=== PATIENT | female | born 1950 | race Caucasian/White ===

== ENCOUNTER → 2017-04-22 | Outpatient (CLI) | payer OTHER, BC | LOC: CAT 08:37 | DX: R91.1 Solitary pulmonary nodule (principal); Z85.3 Personal history of malignant neoplasm of breast; Z90.11 Acquired absence of right breast and nipple ==

== ENCOUNTER → 2017-07-11 | Outpatient (CLI) | payer OTHER, BC | LOC: CAT 13:20 | DX: R91.1 Solitary pulmonary nodule (principal); R59.0 Localized enlarged lymph nodes ==

== ENCOUNTER → 2017-10-05 | Outpatient (CLI) | payer OTHER, BC | LOC: CAT 12:30 | DX: R91.8 Other nonspecific abnormal finding of lung field (principal); R91.1 Solitary pulmonary nodule ==